=== PATIENT | male | born 1935 | race Hispanic/Latino ===

== ENCOUNTER 2019-07-19 20:25 | Observation (INO) | payer OTHER ==
[~2019-07-19] VITALS: Ht 177.8 cm; Wt 77.7 kg
[~2019-07-19 20:25] MED LIST: LISI-613 PO
[2019-07-19 20:51] LABS: BASOPHILS % (AUTO) 0.3 % (0.0-5.0); EOSINOPHILS % (AUTO) 0.3 % (0.0-8.0); HEMATOCRIT 43.2 % (42-54); LYMPHOCYTES % (AUTO) 17.9 % (21.0-51.0); MEAN CORPUSCULAR HEMOGLOBIN 30.1 pg (27.0-33.0); MEAN CORPUSCULAR VOLUME 88.7 fL (79-99); MONOCYTES % (AUTO) 5.5 % (3.0-13.0); PLATELET COUNT (AUTO) 312 K/uL (130-400); RED BLOOD CELL COUNT(AUTO) 4.87 MIL/uL (4.50-6.20); RED CELL DISTRIBUTION WIDTH 13.6 % (11.0-15.5); WHITE BLOOD COUNT (AUTO) 15.8 K/uL (4.8-10.8)
[2019-07-19 21:01] LABS: CREATININE 0.9 mg/dL (0.5-1.5); POTASSIUM 4.3 mmol/L (3.5-5.1)
[2019-07-19 21:05] LABS: ALBUMIN 3.9 g/dL (3.5-5.0); BILIRUBIN,TOTAL 0.5 mg/dL (0.2-1.0); TOTAL PROTEIN, SERUM 7.3 g/dL (6.0-8.3)
[2019-07-19] MEDS ORDERED: IOHEXOL-350 75 ML VIAL IV ONE (21:14)
[2019-07-19 22:23] LABS: APPEARANCE,URINE Clear (CLEAR); BILIRUBIN,URINE Negative (NEGATIVE); COLOR,URINE Yellow (YELLOW); GLUCOSE, URINE (UA) 500 mg/dL (NEGATIVE); KETONES,URINE Negative (NEGATIVE); LEUKOCYTE ESTERASE ,URINE Negative (NEGATIVE); NITRATE,URINE Negative (NEGATIVE); OCCULT BLOOD,URINE Negative (NEGATIVE); PH,URINE 5.5 (5.0-8.0); PROTEIN,URINE POS 1+ mg/dL (NEGATIVE); UROBILINOGEN,URINE 0.2 mg/dL (0.2-1.0)
[2019-07-19] MEDS ORDERED: MORPHINE SULFATE 4 MG/1ML SYG ONE (22:37)
[2019-07-19] MEDS ORDERED: SODIUM CHLORIDE 0.9% 1000ML 1,000 ML IV ONE (22:37)
[2019-07-19] MEDS ORDERED: ONDANSETRON HCL 4 MG/2 ML VIAL ONE (22:37)
[2019-07-19 22:48] LABS: BACTERIA,URINE Few /HPF (None Seen); MUCUS,URINE Few LPF (None Seen); RBC,URINE 0-1 /HPF (0-1)
[2019-07-19] MEDS ORDERED: MORPHINE SULFATE 2 MG/ML 1ML SYG IVP PRN (23:30)
[2019-07-19] MEDS ORDERED: ONDANSETRON HCL 4 MG/2 ML VIAL IVP PRN (23:30)
[2019-07-19] MEDS ORDERED: ZOSYN 3.375GM+NS 50ML 50 ML IV ONE (23:46)
--- NOTE | 2019-07-20 00:09 | NUR ---
ER ADMIT PATIENT RECEIVED FROM ER VIA STRETCHER ACCOMPANIED BY SPOUSE. HE IS AWAKE, ALERT AND ORIENTED X3. NO C/O PAIN AT THIS TIME. BOTH WERE ORIENTED TO ROOM AND USE OF CALL LIGHT. ALL PERSONAL BELONGINGS ARE WITHIN REACH. WILL CONTINUE TO MONITOR.
[2019-07-20 00:24] VITALS: BP 177/73
[2019-07-20] MEDS: SODIUM CHLORIDE 0.9% 1000ML 1,000 ML IV SCH ×2 (00:30→09:42)
[2019-07-20] MEDS: IPRATROPIUM/ALBUTEROL SULFATE 3 ML SOLUTION IH PRN ×3 (03:23→18:56)
[2019-07-20 04:00] VITALS: BP 155/82
[2019-07-20 08:00] VITALS: BP 160/79
[2019-07-20] MEDS ORDERED: PIPERACILLIN SODIUM/TAZOBACTAM 3.375 GM VIAL IV SCH ×2 (08:00)
[2019-07-20] MEDS: ZOSYN 3.375GM+NS 50ML 50 ML IV SCH ×3 (09:40→23:53)
[2019-07-20] MEDS ORDERED: UMEC1DIS IH (09:55)
[2019-07-20] MEDS ORDERED: SOLUMEDROL PO (09:55)
[2019-07-20] MEDS ORDERED: ALBUTEROL SULFATE IH (09:55)
[2019-07-20 11:52] VITALS: BP 135/66
[2019-07-20] MEDS ORDERED: ACETAMINOPHEN 325 MG TAB PO PRN (12:30)
[2019-07-20] MEDS ORDERED: ACETAMINOPHEN-CODEINE 300/30MG TAB PO PRN (12:30)
[2019-07-20] MEDS ORDERED: ALPRAZOLAM 0.25 MG TABLET PO PRN (13:15)
[2019-07-20] MEDS ORDERED: LACTULOSE 20 GM/30 ML UDCUP PO PRN (13:15)
[2019-07-20] MEDS ORDERED: HYDRALAZINE HCL 20 MG/ML VIAL IV PRN (13:15)
[2019-07-20] MEDS ORDERED: METOPROLOL TARTRATE 1 MG/ML 5ML VIAL IV PRN (13:15)
[2019-07-20] MEDS: LISINOPRIL 40 MG TABLET PO SCH (13:27)
--- NOTE | 2019-07-20 16:00 | NUR ---
CM NOTE PT IN OBS STATUS, NO CM TRIGGERS, WILL DEFER CM DETAILED ASSESSMENT TODAY, AND WILL FOLLOW UP IF CHANGE TO INPATIENT Addendum: 07/20/19 at 1750 by NALINI GUILLAUME RN CM Amended: Links added.
[2019-07-20 16:03] VITALS: BP 160/73
[2019-07-20] MEDS: BUDESONIDE 0.5 MG/2 ML INH IH SCH (18:57)
[2019-07-20 19:39] VITALS: BP 146/76
[2019-07-21 00:11] VITALS: BP 141/74
[2019-07-21] MEDS: SODIUM CHLORIDE 0.9% 1000ML 1,000 ML IV SCH ×2 (02:09→10:33)
[2019-07-21 04:00] VITALS: BP 139/81
[2019-07-21] MEDS: IPRATROPIUM/ALBUTEROL SULFATE 3 ML SOLUTION IH PRN (05:18)
[2019-07-21 05:24] LABS: BASOPHILS % (AUTO) 0.6 % (0.0-5.0); EOSINOPHILS % (AUTO) 2.6 % (0.0-8.0); HEMATOCRIT 42.4 % (42-54); LYMPHOCYTES % (AUTO) 19.4 % (21.0-51.0); MEAN CORPUSCULAR HEMOGLOBIN 29.9 pg (27.0-33.0); MEAN CORPUSCULAR HGB CONC 33.8 g/dL (32.0-36.0); MEAN CORPUSCULAR VOLUME 88.6 fL (79-99); MONOCYTES % (AUTO) 6.3 % (3.0-13.0); NEUTROPHILS % (AUTO) 71.1 % (40.0-77.0); PLATELET COUNT (AUTO) 284 K/uL (130-400); RED BLOOD CELL COUNT(AUTO) 4.79 MIL/uL (4.50-6.20); RED CELL DISTRIBUTION WIDTH 13.7 % (11.0-15.5); WHITE BLOOD COUNT (AUTO) 13.9 K/uL (4.8-10.8)
[2019-07-21 05:37] LABS: ALBUMIN 3.3 g/dL (3.5-5.0); BILIRUBIN,TOTAL 0.5 mg/dL (0.2-1.0); CREATININE 0.8 mg/dL (0.5-1.5); POTASSIUM 3.8 mmol/L (3.5-5.1); TOTAL PROTEIN, SERUM 6.5 g/dL (6.0-8.3)
[2019-07-21] MEDS: BUDESONIDE 0.5 MG/2 ML INH IH SCH (07:03)
[2019-07-21 07:30] VITALS: BP 134/64
[2019-07-21] MEDS ORDERED: LISINOPRIL 40 MG TABLET PO SCH (09:00)
[2019-07-21] MEDS ORDERED: PANTOPRAZOLE SODIUM 40 MG TABLET.DR PO SCH (09:00)
[2019-07-21] MEDS: LISINOPRIL 40 MG TABLET PO SCH (10:32)
[2019-07-21] MEDS: ZOSYN 3.375GM+NS 50ML 50 ML IV SCH ×2 (10:33→16:00)
[2019-07-21 11:00] VITALS: BP 157/69
== END 2019-07-21 16:50 | disposition home or self-care (01) ==
LOC: EDH 20:25 → EDHIP 22:50 → 4BH 23:18
PROVIDERS: ADMIT Internal Medicine; ATTEND Internal Medicine
DX: K40.20 Bilateral inguinal hernia, without obstruction or gangrene, not specified as recurrent (principal); D72.829 Elevated white blood cell count, unspecified; E78.5 Hyperlipidemia, unspecified; J44.9 Chronic obstructive pulmonary disease, unspecified; I10 Essential (primary) hypertension; K57.90 Diverticulosis of intestine, part unspecified, without perforation or abscess without bleeding; Z87.891 Personal history of nicotine dependence; Z79.899 Other long term (current) drug therapy
CPT/HCPCS: 36415 ×3; 74177; 80053 ×2; 81001; 83690; 85025 ×2; 87040 ×2; 94640 ×5; 94664; 96365; 96366 ×2; 96375; 99284; G0378 ×41; J2270; J2405; J2543 ×6; J7030 ×4; Q9967

== ENCOUNTER 2019-07-23 15:43 | Inpatient (IN) | payer OTHER ==
[~2019-07-23] VITALS: Ht 177.8 cm; Wt 78.5 kg
[~2019-07-23 15:43] MED LIST changes: +ALBUTEROL SULFATE IH; +SOLUMEDROL PO; +UMEC1DIS IH
[2019-07-23] MEDS ORDERED: ONDANSETRON HCL 4 MG/2 ML VIAL ONE (16:11)
[2019-07-23 16:36] LABS: APPEARANCE,URINE Cloudy (CLEAR); BILIRUBIN,URINE Small (NEGATIVE); COLOR,URINE Dark Yellow (YELLOW); GLUCOSE, URINE (UA) 500 mg/dL (NEGATIVE); KETONES,URINE Trace mg/dL (NEGATIVE); LEUKOCYTE ESTERASE ,URINE Small (NEGATIVE); NITRATE,URINE Negative (NEGATIVE); OCCULT BLOOD,URINE Negative (NEGATIVE); PROTEIN,URINE POS 1+ mg/dL (NEGATIVE)
[2019-07-23] MEDS ORDERED: BISACODYL 10 MG SUPP.RECT RC ONE (16:38)
[2019-07-23 16:55] LABS: BACTERIA,URINE Few /HPF (None Seen); MUCUS,URINE Few LPF (None Seen); RBC,URINE 0-1 /HPF (0-1); SQUAMOUS EPITHELIAL CELL,UR 0-2 /HPF (0-2)
[2019-07-23 16:56] LABS: CALCIUM OXALATE CRYSTALS,UR Few /LPF (None Seen)
[2019-07-23 16:58] LABS: BASOPHILS % (AUTO) 0.4 % (0.0-5.0); EOSINOPHILS % (AUTO) 0.6 % (0.0-8.0); MEAN CORPUSCULAR HEMOGLOBIN 29.9 pg (27.0-33.0); MEAN CORPUSCULAR HGB CONC 33.8 g/dL (32.0-36.0); MEAN CORPUSCULAR VOLUME 88.6 fL (79-99); MONOCYTES % (AUTO) 5.7 % (3.0-13.0); NEUTROPHILS % (AUTO) 85.3 % (40.0-77.0); PLATELET COUNT (AUTO) 268 K/uL (130-400); RED BLOOD CELL COUNT(AUTO) 5.19 MIL/uL (4.50-6.20); RED CELL DISTRIBUTION WIDTH 13.6 % (11.0-15.5)
[2019-07-23 17:07] LABS: CREATININE 0.8 mg/dL (0.5-1.5); POTASSIUM 4.2 mmol/L (3.5-5.1)
[2019-07-23 17:12] LABS: ALBUMIN 3.5 g/dL (3.5-5.0); BILIRUBIN,TOTAL 0.8 mg/dL (0.2-1.0); TOTAL PROTEIN, SERUM 6.9 g/dL (6.0-8.3)
[2019-07-23] MEDS ORDERED: MINERAL OIL 30 ML UDCUP PO SCH (17:15)
[2019-07-23] MEDS ORDERED: ZOSYN 3.375GM+NS 50ML 50 ML IV ONE (19:36)
[2019-07-23] MEDS ORDERED: MORPHINE SULFATE 2 MG/ML 1ML SYG IVP PRN (19:45)
[2019-07-23] MEDS ORDERED: ONDANSETRON HCL 4 MG/2 ML VIAL IVP PRN (19:45)
[2019-07-23] MEDS ORDERED: ACETAMINOPHEN 325 MG TAB PO PRN (19:45)
[2019-07-23 20:05] VITALS: BP 140/69
[2019-07-23] MEDS: LACTULOSE 20 GM/30 ML UDCUP PO SCH (20:21)
[2019-07-23] MEDS ORDERED: VANCOMYCIN PROTOCOL PER PHARMACY IV SCH (20:30)
[2019-07-23] MEDS: ZOSYN 3.375GM+NS 50ML 50 ML IV SCH (20:46)
[2019-07-23] MEDS: VANCOMYCIN 1GM+NS 250ML 250 ML IV SCH (20:49)
[2019-07-23 23:44] VITALS: BP 143/84
[2019-07-24 03:31] VITALS: BP 129/74
[2019-07-24] MEDS ORDERED: IPRATROPIUM/ALBUTEROL SULFATE 3 ML SOLUTION IH STA (04:37)
[2019-07-24] MEDS: ZOSYN 3.375GM+NS 50ML 50 ML IV SCH ×3 (04:42→20:47)
[2019-07-24] MEDS ORDERED: IPRATROPIUM/ALBUTEROL SULFATE 3 ML SOLUTION IH ONE (04:45)
[2019-07-24] MEDS: INSULIN HUMULIN R 100 UNIT/ML 3ML SQ SCH ×3 (05:20→18:42)
[2019-07-24 08:00] VITALS: BP 141/70
[2019-07-24] MEDS: VANCOMYCIN 1GM+NS 250ML 250 ML IV SCH ×2 (09:08→20:47)
[2019-07-24] MEDS: LACTULOSE 20 GM/30 ML UDCUP PO SCH ×3 (09:16→20:28)
--- NOTE | 2019-07-24 10:26 | NUR ---
Order was put Q4STAT for one time only. Spoke to Halima PAZ about ordering scheduled treatments if written/verbal order was placed. Chart orders ask to continue home medications. Patient reports taking home meds BID. Shamika PAZ will verify at later time Addendum: 07/24/19 at 1030 by ROCK MCKEON RT RT Amended: Links added.
--- NOTE | 2019-07-24 10:59 | NUR ---
Order was put Q4STAT for one time only. Spoke to Halima PAZ about ordering scheduled treatments if written/verbal order was placed by doctor. Chart orders ask to continue home medications. Patient reports taking home meds BID. Shamika PAZ will verify at later time. Addendum: 07/24/19 at 1102 by ROCK MCKEON, RT RT Amended: Links added.
[2019-07-24 12:00] VITALS: BP 135/69
--- NOTE | 2019-07-24 12:43 | NUR ---
ELZA Chris. HERE FOR . DR. COSTELLO. UPDATE OF PT. ORDERS FOR SURGEON CONSULTATION . . REVIEW . CT SCAN AND WAITING FOR OTHER DIAGNOTIC PROCEDURE. RESULTS. .
--- NOTE | 2019-07-24 13:00 | NUR ---
EXPLAIN TO PT . REGARDING . PLACEMENT OF NG TUBE ORDER. POSITION. PT HOB UP. TRY TO INSERT A NG TO HIS RT NARE AND UNABLE TO PASS THE TUBE , STOP. DUE TO PT GOT. SOME WHEEZING, CALLED RESP STAFF FOR RESP TREATMENT. ..
[2019-07-24] MEDS: ALBUTEROL SULFATE 0.083% 2.5 MG/3 ML INH IH PRN ×3 (13:24→23:27)
--- NOTE | 2019-07-24 14:50 | NUR ---
CHELSY Mesa HERE AND SPOKE WITH PT REGARDING CT SCAN RESULTS AND AGREE FOR NG TUBE PLACEMENT. AND ORDERS TO FOLLOW.
--- NOTE | 2019-07-24 15:00 | NUR ---
NG PLACEMENT . EXPLAIN TO PT/ [POSITION HOB UP. WITH HELP. DEMETRA Marcelo RN . INSERTED A 14 SYRIAN NG TO HIS RT NARE. CHECK FOR PLACEMENT AND NG TO LOW WALL INTERMMITTED SUCTION WITH A DARK GREEN COLOR GASTRIC SCREATION . NOTED . . TOLERATE WELL.
[2019-07-24 16:00] VITALS: BP 151/78
[2019-07-24] MEDS: LACTATED RINGERS 1000ML 1,000 ML IV SCH (18:41)
[2019-07-24 19:50] VITALS: BP 140/66
--- NOTE | 2019-07-24 20:45 | NUR ---
MEDS SHIFT ASSESSMENT DONE, PLEASE REFER TO CHART. INSERTED SECOND PIV G20 TO RT HAND, PT TOLERATED WELL. DUE IV ANTIBIOTICS INFUSED. KEPT NPO WITH NGT TO LIS. MAINTAINED HOB ELEVATED. KEPT COMFORTABLE. CALL LIGHT WITHIN REACH. FAMILY AT BEDSIDE. Addendum: 07/24/19 at 2352 by SUSANNA GRAVES RN RN Amended: Links added.
[2019-07-24 23:38] VITALS: BP 146/76
--- NOTE | 2019-07-25 02:00 | NUR ---
ROUNDS PT FAIRLY ASLEEP WITH RESPIRATIONS EVEN AND UNLABORED. NO NOTED DISTRESS. KEPT UNDISTURBED FOR NOW. WILL MONITOR PT. CALL LIGHT WITHIN REACH.
[2019-07-25 03:33] VITALS: BP 139/89
[2019-07-25 04:41] LABS: BASOPHILS % (AUTO) 0.7 % (0.0-5.0); EOSINOPHILS % (AUTO) 1.1 % (0.0-8.0); HEMATOCRIT 41.7 % (42-54); LYMPHOCYTES % (AUTO) 8.5 % (21.0-51.0); MEAN CORPUSCULAR HEMOGLOBIN 29.8 pg (27.0-33.0); MEAN CORPUSCULAR HGB CONC 33.7 g/dL (32.0-36.0); MEAN CORPUSCULAR VOLUME 88.5 fL (79-99); MONOCYTES % (AUTO) 6.3 % (3.0-13.0); NEUTROPHILS % (AUTO) 83.4 % (40.0-77.0); PLATELET COUNT (AUTO) 260 K/uL (130-400); RED BLOOD CELL COUNT(AUTO) 4.71 MIL/uL (4.50-6.20); RED CELL DISTRIBUTION WIDTH 13.9 % (11.0-15.5); WHITE BLOOD COUNT (AUTO) 17.3 K/uL (4.8-10.8)
[2019-07-25] MEDS: ZOSYN 3.375GM+NS 50ML 50 ML IV SCH ×3 (04:48→20:52)
--- NOTE | 2019-07-25 04:50 | NUR ---
MEDS RECRUITMENT AND OUTREACH ASSISTANT WAS IN TO DRAW BLOOD. DUE MEDS ADMINISTERED, TOLERATED WELL. PT DENIES ANY PAINS AT THIS TIME. NO DISTRESS NOTED. PROVIDED TOOTEETH TO MOISTEN MOUTH. KEPT NPO. FOR MORE CARE AND MANAGEMENT.
[2019-07-25 04:53] LABS: INR 1.08 (0.85-1.15); PARTIAL THROMBOPLASTIN TIME 26.7 SEC (26.3-35.5); PROTHROMBIN TIME 11.3 SEC (9.6-11.6)
[2019-07-25 05:15] LABS: ALBUMIN 2.8 g/dL (3.5-5.0); BILIRUBIN,TOTAL 0.6 mg/dL (0.2-1.0); CREATININE 0.8 mg/dL (0.5-1.5); POTASSIUM 3.8 mmol/L (3.5-5.1); TOTAL PROTEIN, SERUM 5.9 g/dL (6.0-8.3)
[2019-07-25] MEDS: INSULIN HUMULIN R 100 UNIT/ML 3ML SQ SCH ×5 (05:25→23:46)
[2019-07-25] MEDS: ALBUTEROL SULFATE 0.083% 2.5 MG/3 ML INH IH PRN (06:11)
[2019-07-25] MEDS: LACTATED RINGERS 1000ML 1,000 ML IV SCH ×2 (06:25→09:52)
[2019-07-25 08:00] VITALS: BP 140/75
[2019-07-25] MEDS ORDERED: COMPOUND IV REFRIGERATED 1 EACH IVSOLN MISC PRN (08:45)
[2019-07-25] MEDS ORDERED: LISINOPRIL 40 MG TABLET PO SCH (09:00)
[2019-07-25] MEDS: **HM** ANORO ELLIPTA 62.5-25MCG IH SCH (09:00)
[2019-07-25] MEDS: LACTULOSE 20 GM/30 ML UDCUP PO SCH ×2 (09:00→14:00)
[2019-07-25] MEDS: VANCOMYCIN 1.25 GM in SODIUM CHLORIDE 0.9% 250 ML IV SCH ×2 (09:45→20:52)
[2019-07-25 12:02] VITALS: BP 143/67
--- NOTE | 2019-07-25 12:50 | NUR ---
INITIAL MULTIPLE FAMILY MEMBERS IN THE ROOM- PT LIVES [address] [phone] HAS NO DME, NO HH, NO PROVIDER; INDP; [facility] WILL FOLLOW- EXPECTING TO HAVE SURGERY Addendum: 07/25/19 at 1254 by NALINI GUILLAUME RN Amended: Links added.
--- NOTE | 2019-07-25 14:07 | NUR ---
OSBALDO PA IN FACILITY TO ASSESS PT GAVE NEW ORDER TO HOLD LISINOPRIL AND LACTULOSE UNTIL NGT REMOVAL
--- NOTE | 2019-07-25 14:30 | NUR ---
DR. COSTELLO HERE ,AND ASSESS PT. SCROTAL AREA, AND ALSO SPOKE WITH PT ,AND FAMILY OF PT SURGERY FOR A BILATERAL INGULINAL HERNIA REPAIR, SPOKE WITH PT . AND FAMILY OF RISK AND OUTCOMES, QUESTION REVIEW . AND DR. SADLER TO FOLLOW
--- NOTE | 2019-07-25 14:39 | NUR ---
CALLED . CHELSY Mesa UPDATE OF DR GONZALES REQUEST IF CARDIAC CLEARANCE FOR SURGERY NEEDED . RESPOND NO CARDIAC CLEARANCE . FOR SURGERY
[2019-07-25 16:00] VITALS: BP 142/75
--- NOTE | 2019-07-25 16:30 | NUR ---
ELZA Mesa HERE AND SPOKE WITH FAMILY AND PT. REGARDING SURGERY. PT STATED THAT THEY WISH FOR ANOTHER SURGEON . . FOR SURGERY CARE. WITH FOLLOWUP.
--- NOTE | 2019-07-25 16:50 | NUR ---
ELZA Mesa AT THE NURSE'S STATIONS WITH FOLLOWUP .STATUS. SPOKE WITH DR. COSTELLO THEIR SERVICE IS SIGNING OFF THE CASE . PER FAMILY REQUEST.
--- NOTE | 2019-07-25 17:00 | NUR ---
CHELSY Mesa WAS CALLED AND UPDATE OF PT . REQUEST OF ANOTHER SURGEON . WITH NURSING COMMNICATIN TO REFER CASE FOLLOW AIRPLANE PILOT HELPER PROTOCOL . FOR SURGERY CARE .
--- NOTE | 2019-07-25 17:05 | NUR ---
FAMILY. DAUGHTER . GAVE ME DR. GUZMAN . NAME AND STATED THAT THEY WANTED HIM TO DO THE SURGERY.
--- NOTE | 2019-07-25 17:44 | NUR ---
DOMITILA HANLEY DENTAL INSURANCE BILLER FOR BENCHMARK AND UPDATE OF PT . . DECLINING SERVICES FROM DR. COSTELLO . AND WANTING ANOTHER SURGEON.. WILL BE HERE TOMMORROW TO SEE PT. AND ALSO TO SPEAK WITH FAMILY MEMBERS OF CARE . Addendum: 07/25/19 at 195 by CARMELITA GRESHAM RN RN CHARLEEN Jones
--- NOTE | 2019-07-25 18:30 | NUR ---
DR. WALSH WAS CALLED AND SPOKE WITH HIM REGARDING PT . FAMILY REQUEST OF HIS SERVICES . . DR. 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 REGARDING . STATUS. PROTOCOL
--- NOTE | 2019-07-25 18:31 | NUR ---
COURTESY , VISIT FROM DR. WALSH PER FAMILY REQUEST } OUT COME : FOLLOW WITH [facility] PROTOCOL . .
--- NOTE | 2019-07-25 18:50 | NUR ---
SPOKE WITH FAMILY OF CUSTOMER SERVICE REP PROTOCOL , AND DR. GUZMAN INFORMATION REGARDING HIS POSITION THAT HE WAS NOT CUSTOMER SERVICE REP AND NEEDED TO FOLLOW THE CUSTOMER SERVICE REP PROTOCOL . FAMILY . UPDATE WILL LET PRIMARY KNOW OF OUTCOME.
[2019-07-25 20:17] VITALS: BP 143/72
--- NOTE | 2019-07-25 20:55 | NUR ---
MEDS SHIFT ASSESSMENT DONE, PLEASE REFER TO CHART. DUE MEDS ADMINISTERED, TOLERATED WELL. KEPT NPO. NGT TUBE MAINTAINED TO INTERMITTENT LIS. KEPT COMFORTABLE WITH HOB ELEVATED. WILL MONITOR PT. FAMILY AT BEDSIDE. CALL LIGHT WITHIN REACH. Addendum: 07/25/19 at 2238 by SUSANNA GRAVES RN RN Amended: Links added.
[2019-07-25 23:47] VITALS: BP 148/70
--- NOTE | 2019-07-26 02:00 | NUR ---
ROUNDS PT FAIRLY ASLEEP WITH RESPIRATIONS EVEN AND UNLABORED. NO NOTED DISTRESS. KEPT UNDISTURBED FOR NOW. CALL LIGHT WITHIN REACH. WILL MEDICATE PT.
[2019-07-26] MEDS: LACTATED RINGERS 1000ML 1,000 ML IV SCH ×3 (03:58→23:20)
[2019-07-26] MEDS: ZOSYN 3.375GM+NS 50ML 50 ML IV SCH ×3 (03:58→21:30)
[2019-07-26 04:06] VITALS: BP 135/69
[2019-07-26 05:24] LABS: BASOPHILS % (AUTO) 0.5 % (0.0-5.0); EOSINOPHILS % (AUTO) 3.5 % (0.0-8.0); HEMATOCRIT 39.7 % (42-54); LYMPHOCYTES % (AUTO) 8.5 % (21.0-51.0); MEAN CORPUSCULAR HGB CONC 33.4 g/dL (32.0-36.0); MEAN CORPUSCULAR VOLUME 89.8 fL (79-99); MONOCYTES % (AUTO) 6.1 % (3.0-13.0); NEUTROPHILS % (AUTO) 81.4 % (40.0-77.0); PLATELET COUNT (AUTO) 224 K/uL (130-400); RED BLOOD CELL COUNT(AUTO) 4.42 MIL/uL (4.50-6.20); RED CELL DISTRIBUTION WIDTH 13.6 % (11.0-15.5); WHITE BLOOD COUNT (AUTO) 15.8 K/uL (4.8-10.8)
[2019-07-26 05:27] LABS: CREATININE 0.8 mg/dL (0.5-1.5); MAGNESIUM 2.1 mg/dL (1.80-2.40)
[2019-07-26] MEDS: INSULIN HUMULIN R 100 UNIT/ML 3ML SQ SCH ×4 (05:43→23:47)
--- NOTE | 2019-07-26 06:20 | NUR ---
ROUNDS PT RESTING WELL. NO CONCERNS VERBALIZED. NO DISTRESS NOTED. KEPT RESTED. FOR MORE CARE.
[2019-07-26] MEDS: ALBUTEROL SULFATE 0.083% 2.5 MG/3 ML INH IH PRN ×2 (07:09→19:36)
[2019-07-26 07:30] VITALS: BP 131/57
[2019-07-26] MEDS: **HM** ANORO ELLIPTA 62.5-25MCG IH SCH (08:33)
[2019-07-26] MEDS: VANCOMYCIN 1.25 GM in SODIUM CHLORIDE 0.9% 250 ML IV SCH ×2 (10:58→21:30)
[2019-07-26 11:00] VITALS: BP 136/63
--- NOTE | 2019-07-26 12:10 | NUR ---
DR. GAYE NG . BENCHMARK GROUP ROUNDING . AND KD CHAVEZ TEST AND BALANCE ENGINEER . AT THE BEDSIDE, ASSESSMENT DONE TO HIS INGUINAL HERNIAS . QUESTIONS DIRECTED TO PT.AND FAMILY REGARDING PT . HISTORY AND HOSPITAL CARE ALSO LET FAMILY MEMBERS KNOW THAT AUTOMOTIVE SERVICE DIRECTOR SURGEON IS DR. REECE ,SURGEON , AND ALSO SOMETIME DR. COSTELLO COVERS FOR HER . AND WILL LET HER KNOW REGARDING THE CASE IF IT WAS OKAY WITH PT . AND FAMILY.. AND DR. Albert NG WILL CALL DR. REECE ..IF SHE WOULD TAKE THE CASE OTHER OPTIONS DISCUSS .IF THEY DECIDE OTHER BECERRA.
--- NOTE | 2019-07-26 12:35 | NUR ---
DR. Albert RAMSEY SPOKE WITH DR. REECE REG MONICA ALDRIDGE, AND AGREE TO SEE PT. DR. NG LET FAMILY AND PT KNOW THAT DR. REECE WILL COME IN TO SEE HIM, AGREEABLE RESPOND .
[2019-07-26 16:00] VITALS: BP 144/69
--- NOTE | 2019-07-26 21:30 | NUR ---
MEDS DUE MEDS ADMINISTERED, TOLERATED WELL. NO CONCERNS VERBALIZED AT THIS TIME. INFORMED THAT SURGEON WILL SEE HIM IN AM PER REPORT FROM AM NURSE. VERBALIZES UNDERSTANDING.
[2019-07-26 21:49] VITALS: BP 162/77
[2019-07-26 23:46] VITALS: BP 139/68
--- NOTE | 2019-07-27 02:00 | NUR ---
ROUNDS PT RESTING WELL, FAIRLY ASLEEP WITH RESPIRATIONS EVEN AND UNLABORED. NO NOTED DISTRESS. KEPT NPO. MAINTAINED ON NGT TO LIS. WILL MONITOR PT.
[2019-07-27 03:53] VITALS: BP 149/70
[2019-07-27] MEDS: ALBUTEROL SULFATE 0.083% 2.5 MG/3 ML INH IH PRN ×2 (05:01→18:09)
[2019-07-27] MEDS: ZOSYN 3.375GM+NS 50ML 50 ML IV SCH ×3 (05:03→21:54)
[2019-07-27] MEDS: INSULIN HUMULIN R 100 UNIT/ML 3ML SQ SCH ×3 (05:15→17:34)
[2019-07-27 06:08] LABS: HEMATOCRIT 39.3 % (42-54); MEAN CORPUSCULAR HGB CONC 33.6 g/dL (32.0-36.0); MEAN CORPUSCULAR VOLUME 89.4 fL (79-99); PLATELET COUNT (AUTO) 227 K/uL (130-400); RED BLOOD CELL COUNT(AUTO) 4.39 MIL/uL (4.50-6.20); RED CELL DISTRIBUTION WIDTH 13.4 % (11.0-15.5); WHITE BLOOD COUNT (AUTO) 11.5 K/uL (4.8-10.8)
[2019-07-27 06:15] LABS: CREATININE 0.7 mg/dL (0.5-1.5); POTASSIUM 3.9 mmol/L (3.5-5.1)
--- NOTE | 2019-07-27 06:20 | NUR ---
OR OR CALLED AND INFORMS DIRECTOR OF QUANTITATIVE RESEARCH THAT PT IS ON THE OR SCHEDULE FOR TODAY AT 7AM. INFORMED OR STAFF THAT NO ORDER WAS MADE ON PT. RESOURCE NURSE MADE AWARE.
--- NOTE | 2019-07-27 07:15 | NUR ---
NOTE AAOX3. DENIES PAIN OR DISCOMFORT AT THIS TIME. BBS CLEAR NO COUGH OR PHLEGM. NO N/V NGT IN PLACE CHECKED WITH AUSCULTATION. BOWEL SOUNDS HYPOACTIVE. WEARS BRIEFS FOR INCONTINENCE EPISODES. SCROTUM LARGE AND RED TO SOME AREAS BUT BLENCHING NOTED. NO SKIN BREAKDOWN OR RASH REPORTED OR NOTED. AT HIS SIDE. THERE WAS A MISCOMMUNICATION AND SURGERY CAME UP TO FINGER GRIP MACHINE OPERATOR PATIENT BUT THERE IS NO ORDER TO OPERATE ON HIM AND WE ARE STILL WAITING FOR DR REECE TO COME SEE THE PATIENT.
--- NOTE | 2019-07-27 07:48 | NUR ---
DR SHANELL REECE MADE ROUNDS AT THIS TIME AND SPOKE TO PATIENT AND DAUGHTER OVER TELEPHONE AND EXPLAINED THE PLAN. FOR NOW TO WAIT FOR HIS WBC TO GO DOWN TO NORMAL AND START SUPPLEMENTAL NUTRITION WHILE WE WAIT. NGT STILL TO LIWS. EXPLAINED THE RISKS INVOLVED WITH SURGERY, INFECTION, LOSS OF TESTICLE OR TESTICLES AND USING MESH FOR REPAIR OB BILATERAL INGUINAL HERNIAS THAT HAVE INVADED THE SCROTUM.
[2019-07-27 08:07] VITALS: BP 136/66
[2019-07-27] MEDS: **HM** ANORO ELLIPTA 62.5-25MCG IH SCH (09:00)
--- NOTE | 2019-07-27 09:06 | NUR ---
f/u visit Sw met with family who states surgery is Thursday. Family very pleased with Dr Méndez and her explanation of procedure and risks. Sw to follow and assist as needed
[2019-07-27] MEDS: VANCOMYCIN 1.25 GM in SODIUM CHLORIDE 0.9% 250 ML IV SCH ×2 (10:14→21:55)
[2019-07-27 11:39] VITALS: BP 152/70
[2019-07-27] MEDS: LACTATED RINGERS 1000ML 1,000 ML IV SCH (12:40)
[2019-07-27 16:56] VITALS: BP 147/71
[2019-07-27] MEDS: HEPARIN SODIUM 5000UNIT/ML 1ML VIAL SQ SCH (18:23)
[2019-07-27 20:00] VITALS: BP 129/72
[2019-07-28] VITALS: BP 136/67
[2019-07-28] MEDS: LACTATED RINGERS 1000ML 1,000 ML IV SCH ×2 (02:00→18:15)
[2019-07-28 04:00] VITALS: BP 137/58
[2019-07-28] MEDS: HEPARIN SODIUM 5000UNIT/ML 1ML VIAL SQ SCH ×2 (05:43→18:16)
[2019-07-28] MEDS: INSULIN HUMULIN R 100 UNIT/ML 3ML SQ SCH ×4 (05:50→17:10)
[2019-07-28] MEDS: ZOSYN 3.375GM+NS 50ML 50 ML IV SCH ×3 (05:50→20:34)
[2019-07-28] MEDS: ALBUTEROL SULFATE 0.083% 2.5 MG/3 ML INH IH PRN ×2 (06:05→18:36)
[2019-07-28 06:15] LABS: HEMATOCRIT 37.1 % (42-54); MEAN CORPUSCULAR HEMOGLOBIN 30.2 pg (27.0-33.0); MEAN CORPUSCULAR HGB CONC 33.9 g/dL (32.0-36.0); MEAN CORPUSCULAR VOLUME 88.9 fL (79-99); PLATELET COUNT (AUTO) 219 K/uL (130-400); RED BLOOD CELL COUNT(AUTO) 4.17 MIL/uL (4.50-6.20); RED CELL DISTRIBUTION WIDTH 13.4 % (11.0-15.5); WHITE BLOOD COUNT (AUTO) 11.1 K/uL (4.8-10.8)
[2019-07-28 06:19] LABS: CREATININE 0.7 mg/dL (0.5-1.5); MAGNESIUM 1.7 mg/dL (1.80-2.40); POTASSIUM 3.5 mmol/L (3.5-5.1)
[2019-07-28 08:07] VITALS: BP 146/74
[2019-07-28] MEDS: **HM** ANORO ELLIPTA 62.5-25MCG IH SCH (09:00)
[2019-07-28] MEDS ORDERED: LIDOCAINE HCL-MPF 1% 2ML VIAL IV PRN (11:15)
[2019-07-28] MEDS ORDERED: MAGNESIUM 2GM PREMIX 50ML 50 ML IV PRN (11:15)
[2019-07-28] MEDS ORDERED: POTASSIUM CHLORIDE 20 MEQ ERTAB PO PRN (11:15)
[2019-07-28] MEDS ORDERED: POTASSIUM CHLORIDE 20MEQ/100ML 100 ML IV PRN (11:15)
[2019-07-28] MEDS: VANCOMYCIN 1.25 GM in SODIUM CHLORIDE 0.9% 250 ML IV SCH ×2 (11:54→20:34)
[2019-07-28 12:02] VITALS: BP 152/82
[2019-07-28 17:14] VITALS: BP 145/84
[2019-07-28 20:00] VITALS: BP 142/68
[2019-07-29] VITALS (28 sets, daily range): BP systolic 122–176; BP diastolic 62–85
[2019-07-29] MEDS: HEPARIN SODIUM 5000UNIT/ML 1ML VIAL SQ SCH ×2 (03:09→16:30)
[2019-07-29] MEDS: LACTATED RINGERS 1000ML 1,000 ML IV SCH ×2 (04:40→18:33)
[2019-07-29 04:42] LABS: HEMATOCRIT 37.7 % (42-54); MEAN CORPUSCULAR HEMOGLOBIN 30.3 pg (27.0-33.0); MEAN CORPUSCULAR HGB CONC 34.3 g/dL (32.0-36.0); MEAN CORPUSCULAR VOLUME 88.2 fL (79-99); PLATELET COUNT (AUTO) 213 K/uL (130-400); RED BLOOD CELL COUNT(AUTO) 4.27 MIL/uL (4.50-6.20); RED CELL DISTRIBUTION WIDTH 13.1 % (11.0-15.5); WHITE BLOOD COUNT (AUTO) 10.3 K/uL (4.8-10.8)
[2019-07-29 05:02] LABS: CREATININE 0.7 mg/dL (0.5-1.5); POTASSIUM 3.4 mmol/L (3.5-5.1)
[2019-07-29] MEDS: ZOSYN 3.375GM+NS 50ML 50 ML IV SCH ×3 (05:04→21:34)
[2019-07-29] MEDS: INSULIN HUMULIN R 100 UNIT/ML 3ML SQ SCH ×5 (05:56→21:52)
[2019-07-29] MEDS: ALBUTEROL SULFATE 0.083% 2.5 MG/3 ML INH IH PRN ×2 (06:43→18:31)
[2019-07-29] MEDS: **HM** ANORO ELLIPTA 62.5-25MCG IH SCH (09:00)
[2019-07-29] MEDS: VANCOMYCIN 1.25 GM in SODIUM CHLORIDE 0.9% 250 ML IV SCH ×3 (10:01→21:32)
--- NOTE | 2019-07-29 10:03 | NUR ---
NPO, TRANSFERRED TO OR NO DISTRESS, AAOX3. LUNGS CLEAR. IV INTACT.
[2019-07-29] MEDS ORDERED: SODIUM CHLORIDE 0.9% 1000ML 1,000 ML IV ONE (10:17)
[2019-07-29] MEDS ORDERED: ROPIVACAINE 0.5% 5MG/ML 30ML IJ ONE (10:34)
[2019-07-29] MEDS ORDERED: PROPOFOL 10 MG/ML 20ML VIAL IV ONE (10:45)
[2019-07-29] MEDS ORDERED: MIDAZOLAM HCL 1 MG/ML 2ML VIAL ONE (10:45)
[2019-07-29] MEDS ORDERED: FENTANYL CITRATE PF 50 MCG/1 ML 5ML AMP IV ONE (10:46)
[2019-07-29] MEDS ORDERED: LIDOCAINE HCL MPF 1% 5ML VIAL ONE ×2 (10:46→13:51)
[2019-07-29] MEDS ORDERED: ROCURONIUM 10MG/1ML SYR 10 MG/ML ML ONE ×2 (10:49→11:30)
[2019-07-29] MEDS ORDERED: ONDANSETRON HCL 4 MG/2 ML VIAL ONE (10:50)
[2019-07-29] MEDS ORDERED: DEXAMETHASONE SOD PHOSPHATE 10MG/ML 1ML VIAL ONE (10:50)
[2019-07-29] MEDS ORDERED: EPHEDRINE SULFATE 50 MG/ML AMPULE ONE (11:06)
[2019-07-29] MEDS ORDERED: KETOROLAC TROMETHAMINE 30MG/ML ONE (13:22)
[2019-07-29] MEDS ORDERED: FENTANYL CITRATE PF 50 MCG/1 ML 2ML VIAL ONE (13:41)
[2019-07-29] MEDS ORDERED: GLYCOPYRROLATE 1 MG/5 ML SYRINGE ONE (13:44)
[2019-07-29] MEDS ORDERED: NEOSTIGMINE 5MG/5ML SYR IV ONE (13:44)
[2019-07-29] MEDS ORDERED: ACETAMINOPHEN-CODEINE 300/30MG TAB PO PRN (14:45)
[2019-07-29] MEDS ORDERED: MORPHINE SULFATE 4 MG/1ML SYG IV PRN (14:45)
[2019-07-29] MEDS ORDERED: HYDRALAZINE HCL 20 MG/ML VIAL ONE (15:02)
--- NOTE | 2019-07-29 15:30 | NUR ---
PT BACK FROM SURGERY, S/P RAMON INGUIN. HERNIA REP. RAMON. SKYE DRAIN, WITH SANGUINEOUS DRAINAGE. NO BLEEDING FROM SURGICAL SITE, AAOX3, DENIES ANY PAIN AT THIS TIME. IV INTACT.
[2019-07-30 00:59] VITALS: BP 126/75
[2019-07-30 04:40] VITALS: BP 133/72
[2019-07-30] MEDS: HEPARIN SODIUM 5000UNIT/ML 1ML VIAL SQ SCH ×3 (05:09→17:17)
[2019-07-30] MEDS: ZOSYN 3.375GM+NS 50ML 50 ML IV SCH ×3 (05:09→21:14)
[2019-07-30 07:07] LABS: BASOPHILS % (AUTO) 0.1 % (0.0-5.0); HEMATOCRIT 39.3 % (42-54); LYMPHOCYTES % (AUTO) 6.1 % (21.0-51.0); MEAN CORPUSCULAR HEMOGLOBIN 29.9 pg (27.0-33.0); MEAN CORPUSCULAR HGB CONC 33.5 g/dL (32.0-36.0); MEAN CORPUSCULAR VOLUME 89.4 fL (79-99); MONOCYTES % (AUTO) 8.1 % (3.0-13.0); NEUTROPHILS % (AUTO) 85.7 % (40.0-77.0); PLATELET COUNT (AUTO) 207 K/uL (130-400); RED BLOOD CELL COUNT(AUTO) 4.39 MIL/uL (4.50-6.20); RED CELL DISTRIBUTION WIDTH 13.5 % (11.0-15.5); WHITE BLOOD COUNT (AUTO) 19.3 K/uL (4.8-10.8)
[2019-07-30] MEDS: LACTATED RINGERS 1000ML 1,000 ML IV SCH ×2 (07:20→20:40)
[2019-07-30 07:25] LABS: CREATININE 1.5 mg/dL (0.5-1.5); POTASSIUM 3.6 mmol/L (3.5-5.1)
[2019-07-30] MEDS: INSULIN HUMULIN R 100 UNIT/ML 3ML SQ SCH ×3 (07:30→17:52)
[2019-07-30 08:00] VITALS: BP 141/69
[2019-07-30] MEDS: ALBUTEROL SULFATE 0.083% 2.5 MG/3 ML INH IH PRN (08:50)
[2019-07-30] MEDS: **HM** ANORO ELLIPTA 62.5-25MCG IH SCH (09:00)
[2019-07-30] MEDS: VANCOMYCIN 1.25 GM in SODIUM CHLORIDE 0.9% 250 ML IV SCH (09:00)
--- NOTE | 2019-07-30 09:50 | NUR ---
SURGICAL ROUNDS DR REECE ROUNDED ON PATIENT RECEIVED THE FOLLOWING ORDERS 1. PER SURGURY PATIENT MAY BE DISCARGED WITH DRAINS IN PLACE 2. FOLLOW-UP IN OFFICE IN 7 DAYS CALL FO APPOINTMENT 3. CONTINUE TAKING ENSURE 3 TIMES A DAY WITH MEALS FOR 2 WEEKS 4. TEACH PATIENT HOW TO MILK AND EMPTY SKYE DRAINS 5. MAY REMOVE DRESSING TOMMOROW AND SHOWER PAT AREA DRY AND THEN RE- DRESS IMPORTANT TO KEEP ARE DRY . 6 MAY APPLIED ICE TO SITE ( NOT DIRECTLY ON SKIN) IF NEEDED FOR PAIN.
[2019-07-30] MEDS: ONDANSETRON HCL 4 MG/2 ML VIAL IVP PRN (10:43)
[2019-07-30 11:55] VITALS: BP 101/58
[2019-07-30 16:00] VITALS: BP 109/60
[2019-07-30 19:20] VITALS: BP 122/69
[2019-07-31 00:11] VITALS: BP 143/76
[2019-07-31 04:18] VITALS: BP 156/81
[2019-07-31] MEDS: HEPARIN SODIUM 5000UNIT/ML 1ML VIAL SQ SCH ×2 (05:02→16:48)
[2019-07-31] MEDS: ZOSYN 3.375GM+NS 50ML 50 ML IV SCH ×2 (05:03→13:34)
[2019-07-31] MEDS: INSULIN HUMULIN R 100 UNIT/ML 3ML SQ SCH ×6 (05:15→21:59)
[2019-07-31 06:13] LABS: BASOPHILS % (AUTO) 0.3 % (0.0-5.0); EOSINOPHILS % (AUTO) 0.4 % (0.0-8.0); HEMATOCRIT 37.1 % (42-54); LYMPHOCYTES % (AUTO) 7.3 % (21.0-51.0); MEAN CORPUSCULAR HEMOGLOBIN 30.3 pg (27.0-33.0); MEAN CORPUSCULAR VOLUME 89.2 fL (79-99); MONOCYTES % (AUTO) 8.2 % (3.0-13.0); NEUTROPHILS % (AUTO) 83.8 % (40.0-77.0); PLATELET COUNT (AUTO) 210 K/uL (130-400); RED BLOOD CELL COUNT(AUTO) 4.16 MIL/uL (4.50-6.20); WHITE BLOOD COUNT (AUTO) 15.9 K/uL (4.8-10.8)
[2019-07-31 06:22] LABS: CREATININE 2.3 mg/dL (0.5-1.5); POTASSIUM 3.4 mmol/L (3.5-5.1)
[2019-07-31 07:30] VITALS: BP 148/67
[2019-07-31] MEDS: **HM** ANORO ELLIPTA 62.5-25MCG IH SCH (09:00)
--- NOTE | 2019-07-31 09:00 | NUR ---
DRESSING CHANGED DRESSING TO LOWER ABDOMEN CHANGED PER DR REECE'S ORDERS. PATIENT HAS MADI TO LOWER ABDOMEN AND [address] CLEANSED AREA WITH NS AND COVERED WITH 4X4'S AND MEDIPORE. THE INCISION LOOKS CLEAN DRY AND INTACT SKIN LOOKS PINK, PATIENT DENIES HAVING PAIN TO SITE. EDUCATED PATIENT AND HIS ON THE IMPORTANCE OF KEEPING DRESSING CLEAN AND DRY AT ALL TIMES AND HOW TO CHANGE THE DRESSING AND CARE FOR THE SKYE DRAINS. PROCEDURE TOLERATED WELL.
[2019-07-31] MEDS ORDERED: METHYLPREDNISOLONE SOD SUCC 125MG/2ML VIAL IVP SCH (09:30)
[2019-07-31] MEDS: POTASSIUM CHLORIDE 10% ELIXIR 20 MEQ/15 ML UDCUP PO PRN ×2 (10:31→10:33)
[2019-07-31] MEDS: LACTATED RINGERS 1000ML 1,000 ML IV SCH ×4 (10:39→20:52)
[2019-07-31 11:00] VITALS: BP 145/75
[2019-07-31 16:00] VITALS: BP 152/82
[2019-07-31] MEDS: CEFEPIME HCL 2 GM VIAL IVP SCH (16:44)
[2019-07-31] MEDS: DOXYCYCLINE 100MG+NS 250ML 250 ML IV SCH (16:45)
[2019-07-31 17:37] LABS: CREATININE 2.3 mg/dL (0.5-1.5); POTASSIUM 3.9 mmol/L (3.5-5.1)
[2019-07-31] MEDS: ALBUTEROL SULFATE 0.083% 2.5 MG/3 ML INH IH PRN (18:33)
[2019-07-31] MEDS ORDERED: ZOSYN 3.375GM+NS 50ML 50 ML IV SCH (21:00)
[2019-07-31 21:33] VITALS: BP 151/77
[2019-08-01] VITALS (7 sets, daily range): BP systolic 129–153; BP diastolic 63–83
[2019-08-01] MEDS: ONDANSETRON HCL 4 MG/2 ML VIAL IVP PRN ×2 (02:58→15:46)
[2019-08-01] MEDS: DOXYCYCLINE 100MG+NS 250ML 250 ML IV SCH ×2 (02:58→15:47)
--- NOTE | 2019-08-01 02:58 | NUR ---
NAUSEA Pt c/o feeling nauseated.Unable to sleep well.Medicated with Zofran iv.Pt.s been voiding clear yellow urine via urinal.
[2019-08-01] MEDS: LACTATED RINGERS 1000ML 1,000 ML IV SCH ×3 (03:04→21:20)
[2019-08-01] MEDS: CEFEPIME HCL 2 GM VIAL IVP SCH ×2 (03:04→15:47)
[2019-08-01] MEDS: HEPARIN SODIUM 5000UNIT/ML 1ML VIAL SQ SCH ×2 (04:38→15:48)
[2019-08-01] MEDS: INSULIN HUMULIN R 100 UNIT/ML 3ML SQ SCH ×4 (05:42→21:24)
[2019-08-01 06:26] LABS: BASOPHILS % (AUTO) 0.4 % (0.0-5.0); EOSINOPHILS % (AUTO) 0.9 % (0.0-8.0); HEMATOCRIT 35.8 % (42-54); LYMPHOCYTES % (AUTO) 6.8 % (21.0-51.0); MEAN CORPUSCULAR HGB CONC 33.5 g/dL (32.0-36.0); MEAN CORPUSCULAR VOLUME 89.7 fL (79-99); MONOCYTES % (AUTO) 7.6 % (3.0-13.0); NEUTROPHILS % (AUTO) 84.3 % (40.0-77.0); PLATELET COUNT (AUTO) 200 K/uL (130-400); RED BLOOD CELL COUNT(AUTO) 3.99 MIL/uL (4.50-6.20)
[2019-08-01 06:54] LABS: CREATININE 2.3 mg/dL (0.5-1.5); POTASSIUM 3.6 mmol/L (3.5-5.1)
[2019-08-01] MEDS: **HM** ANORO ELLIPTA 62.5-25MCG IH SCH (09:00)
[2019-08-01] MEDS: DOCUSATE SODIUM 100 MG CAP PO SCH ×3 (10:24→21:20)
--- NOTE | 2019-08-01 12:56 | NUR ---
Nutrition Intervention: Nutrition screen based on LOS x 9 days. Pt. S/P Leonardo. Open Inguinal hernia repair(07/29/19). Pt. on 75gm CCD GI Soft [place] diet with 50% p.o. intake, as per pt./family. Spoke with pt. / family regarding changing nutritional supplementation from Ensure to Glucerna due to elevated BS levels and pt. / family agreed. Labs reviewed(Alb 2.8, BG 147, BUN 23, Creat 2.3, GFR 29). LBM: 07/30/19. SR-10, abd. SKYE drain. BMI: 24.8, normal for age. Recommendations: 1) Continue current diet. 2) Rec. Chilled [place] Glucerna TID with meals in place of Ensure due to elevated BS levels. 3) Continue to monitor pt's nutritional status. 4) Consult RD as nutrition concerns arise. Addendum: 08/01/19 at [address] Amended: Links added.
[2019-08-01 18:38] LABS: APPEARANCE,URINE Clear (CLEAR); BILIRUBIN,URINE Negative (NEGATIVE); COLOR,URINE Yellow (YELLOW); GLUCOSE, URINE (UA) Negative (NEGATIVE); KETONES,URINE Negative (NEGATIVE); LEUKOCYTE ESTERASE ,URINE Small (NEGATIVE); NITRATE,URINE Negative (NEGATIVE); OCCULT BLOOD,URINE Negative (NEGATIVE); PROTEIN,URINE Negative (NEGATIVE); UROBILINOGEN,URINE 0.2 mg/dL (0.2-1.0)
[2019-08-01 18:47] LABS: BACTERIA,URINE Few /HPF (None Seen); RBC,URINE 0-1 /HPF (0-1); SQUAMOUS EPITHELIAL CELL,UR Few /HPF (0-2)
[2019-08-01] MEDS: TAMSULOSIN HCL 0.4 MG CAP.ER.24H PO SCH (21:20)
[2019-08-01] MEDS: LORAZEPAM 1 MG TABLET PO PRN (21:20)
[2019-08-02] MEDS: DOXYCYCLINE 100MG+NS 250ML 250 ML IV SCH ×2 (03:07→15:02)
[2019-08-02 03:53] VITALS: BP 147/72
[2019-08-02] MEDS: LACTATED RINGERS 1000ML 1,000 ML IV SCH ×3 (04:15→20:11)
[2019-08-02 04:51] LABS: HEMATOCRIT 33.7 % (42-54); MEAN CORPUSCULAR HEMOGLOBIN 30.2 pg (27.0-33.0); MEAN CORPUSCULAR HGB CONC 34.3 g/dL (32.0-36.0); MEAN CORPUSCULAR VOLUME 88.1 fL (79-99); PLATELET COUNT (AUTO) 204 K/uL (130-400); RED BLOOD CELL COUNT(AUTO) 3.82 MIL/uL (4.50-6.20); RED CELL DISTRIBUTION WIDTH 13.7 % (11.0-15.5); WHITE BLOOD COUNT (AUTO) 11.9 K/uL (4.8-10.8)
[2019-08-02] MEDS: CEFEPIME HCL 2 GM VIAL IVP SCH ×2 (04:56→15:02)
[2019-08-02] MEDS: HEPARIN SODIUM 5000UNIT/ML 1ML VIAL SQ SCH ×2 (04:57→17:20)
[2019-08-02 05:01] LABS: CREATININE 2.2 mg/dL (0.5-1.5); POTASSIUM 3.8 mmol/L (3.5-5.1)
[2019-08-02] MEDS: INSULIN HUMULIN R 100 UNIT/ML 3ML SQ SCH ×4 (05:51→20:50)
[2019-08-02] MEDS: ALBUTEROL SULFATE 0.083% 2.5 MG/3 ML INH IH PRN ×2 (06:25→18:11)
[2019-08-02 08:00] VITALS: BP 147/74
[2019-08-02] MEDS: **HM** ANORO ELLIPTA 62.5-25MCG IH SCH (09:00)
[2019-08-02] MEDS: DOCUSATE SODIUM 100 MG CAP PO SCH ×3 (09:19→20:10)
[2019-08-02 11:00] VITALS: BP 148/58
[2019-08-02 16:00] VITALS: BP 147/78
[2019-08-02 19:34] VITALS: BP 154/76
[2019-08-02] MEDS: LORAZEPAM 1 MG TABLET PO PRN (20:10)
[2019-08-02] MEDS: TAMSULOSIN HCL 0.4 MG CAP.ER.24H PO SCH (20:10)
[2019-08-02 23:29] VITALS: BP 153/79
[2019-08-03] MEDS: DOXYCYCLINE 100MG+NS 250ML 250 ML IV SCH (03:13)
[2019-08-03] MEDS: LACTATED RINGERS 1000ML 1,000 ML IV SCH ×2 (03:13→12:15)
[2019-08-03 03:54] VITALS: BP 147/78
[2019-08-03 05:16] LABS: BASOPHILS % (AUTO) 0.5 % (0.0-5.0); EOSINOPHILS % (AUTO) 3.8 % (0.0-8.0); HEMATOCRIT 32.4 % (42-54); LYMPHOCYTES % (AUTO) 9.3 % (21.0-51.0); MEAN CORPUSCULAR HEMOGLOBIN 30.7 pg (27.0-33.0); MEAN CORPUSCULAR HGB CONC 34.2 g/dL (32.0-36.0); MEAN CORPUSCULAR VOLUME 89.8 fL (79-99); MONOCYTES % (AUTO) 9.8 % (3.0-13.0); NEUTROPHILS % (AUTO) 76.6 % (40.0-77.0); PLATELET COUNT (AUTO) 203 K/uL (130-400); RED BLOOD CELL COUNT(AUTO) 3.61 MIL/uL (4.50-6.20); RED CELL DISTRIBUTION WIDTH 13.8 % (11.0-15.5); WHITE BLOOD COUNT (AUTO) 11.7 K/uL (4.8-10.8)
[2019-08-03] MEDS: CEFEPIME HCL 2 GM VIAL IVP SCH (05:26)
[2019-08-03] MEDS: HEPARIN SODIUM 5000UNIT/ML 1ML VIAL SQ SCH (05:26)
[2019-08-03 05:31] LABS: CREATININE 2.2 mg/dL (0.5-1.5); POTASSIUM 3.8 mmol/L (3.5-5.1)
[2019-08-03] MEDS: ALBUTEROL SULFATE 0.083% 2.5 MG/3 ML INH IH PRN (05:39)
[2019-08-03] MEDS: INSULIN HUMULIN R 100 UNIT/ML 3ML SQ SCH ×2 (06:10→11:30)
[2019-08-03 07:30] VITALS: BP 138/70
[2019-08-03] MEDS: **HM** ANORO ELLIPTA 62.5-25MCG IH SCH (09:00)
[2019-08-03] MEDS: DOCUSATE SODIUM 100 MG CAP PO SCH ×2 (09:31→14:00)
[2019-08-03 13:00] VITALS: BP 184/96
[2019-08-03 16:00] VITALS: BP 154/86
--- NOTE | 2019-08-03 16:45 | NUR ---
LEFT SKYE DRAIN OUTPUT FOR 24 HR WAS 12ML. SKYE DRAIN WAS REMOVED AT THIS TIME AND GAUZE DRESSING WAS PLACED OVER THE AREA AND SECURED WITH TAPE. TOLERATED PROCEDURE WELL.
--- NOTE | 2019-08-03 17:00 | NUR ---
PATIENT'S HAS BEEN EDUCATED ON HOW TO EMPTY THE SKYE DRAIN AND SHE WAS OBSERVED PERFORMING THE TASK. SHE EXPRESSED CONFIDENCE IN DOING IT.
--- NOTE | 2019-08-03 18:38 | NUR ---
DISCHARGE INSTRUCTIONS WAS PROVIDED TO THE PATIENT AND HIS WITH DAUGHTER AT THE BEDSIDE. FOLLOW-UP APPOINTMENT WAS MADE WITH SURGEON FOR HIM, AND THE PRESCRIPTIONS WERE GIVEN TO HIM AND HE AND HIS VERBALIZED UNDERSTANDING. INSTRUCTED TO CALL FOR SIGNS OF COMPLICATIONS. IV ACCESS WAS REMOVED EARLIER BY CHARGE NURSE WITHOUT COMPLICATION. PATIENT LEFT THE UNIT VIA WHEELCHAIR IN STABLE CONDITION IN CARE OF HIS FAMILY.
== END 2019-08-03 18:35 | disposition home or self-care (01) | DRG 351 ==
LOC: EDH 15:43 → OBSVTOIN 19:10 → EDHIP 19:10 → 3DH 19:44
PROVIDERS: ADMIT Internal Medicine Pulmonary Disease; ATTEND Internal Medicine Pulmonary Disease
PROC: 0D9670Z Drainage of Stomach with Drainage Device, Via Natural or Artificial Opening (ICD-10-PCS; 2019-07-29)
PROC: 0YUA0JZ Supplement Bilateral Inguinal Region with Synthetic Substitute, Open Approach (ICD-10-PCS; principal; 2019-07-29 10:40)
PROC: 3E0T3BZ Introduction of Anesthetic Agent into Peripheral Nerves and Plexi, Percutaneous Approach (ICD-10-PCS; 2019-07-29 10:40)
DX: K40.00 Bilateral inguinal hernia, with obstruction, without gangrene, not specified as recurrent (principal); N17.9 Acute kidney failure, unspecified; N49.2 Inflammatory disorders of scrotum; I10 Essential (primary) hypertension; D72.829 Elevated white blood cell count, unspecified; R33.9 Retention of urine, unspecified; J44.9 Chronic obstructive pulmonary disease, unspecified; N32.0 Bladder-neck obstruction; N39.3 Stress incontinence (female) (male); Z79.899 Other long term (current) drug therapy; Z85.46 Personal history of malignant neoplasm of prostate; Z87.891 Personal history of nicotine dependence; Z90.79 Acquired absence of other genital organ(s)
CPT/HCPCS: 36415; 71045; 74018; 76870; 80048; 80053; 80202; 81001; 82948; 83605; 83735; 85025; 85027; 85610; 85730; 87040; 88302; 88304; 94640; 94664; 96365; 96366; 96375; 97039; A5061; C1781; G0378; J0360; J0692; J1100; J1644; J1815; J1885; J2250; J2270; J2405; J2543; J2704; J2710; J2795; J3010; J3370; J3475; J3490; J7030; J7120

== ENCOUNTER 2019-11-25 09:35 | Day surgery (SDC) | payer OTHER ==
[2019-11-09 17:52] LABS: BASOPHILS % (AUTO) 0.4 % (0.0-5.0); EOSINOPHILS % (AUTO) 1.1 % (0.0-8.0); HEMATOCRIT 36.1 % (42-54); LYMPHOCYTES % (AUTO) 17.8 % (21.0-51.0); MEAN CORPUSCULAR HEMOGLOBIN 29.8 pg (27.0-33.0); MEAN CORPUSCULAR HGB CONC 33.8 g/dL (32.0-36.0); MEAN CORPUSCULAR VOLUME 88.3 fL (79-99); MONOCYTES % (AUTO) 7.2 % (3.0-13.0); NEUTROPHILS % (AUTO) 73.1 % (40.0-77.0); PLATELET COUNT (AUTO) 375 K/uL (130-400); RED BLOOD CELL COUNT(AUTO) 4.09 MIL/uL (4.50-6.20); RED CELL DISTRIBUTION WIDTH 12.7 % (11.0-15.5)
[2019-11-09 18:05] VITALS: BP 151/57
[2019-11-09 18:12] LABS: CREATININE 1.1 mg/dL (0.5-1.5); POTASSIUM 4.5 mmol/L (3.5-5.1)
--- NOTE | 2019-11-10 12:00 | NUR ---
ABNORMAL LAB: FAXED ABNORMAL CBC RESULTS TO DR. BWOEN. SPOKE TO ELADIO BAIRD AT DR. BOWEN'S OFFICE AND WILL SHOW RESULTS TO DOCTOR. WILL RETURN CALL IF ANY ORDERS GIVEN.
--- NOTE | 2019-11-10 12:50 | NUR ---
CONSULT: DR. ARACELIS BOWEN RETURNED CALL REGARDING ABNORMAL LABS CBC, ORDERS GIVEN. PT TO BE SEEN BY PCP REGARDING ABNORMAL WBC ELEVATED, RECENT COLD AND COPD. PATIENT TO BE RESCHEDULED FOR 11/25/19
--- NOTE | 2019-11-10 12:50 | NUR ---
KNOWLEDGE DEFICIT REGARDING SURGERY: SPOKE TO PATIENTS REGARDING SURGERY CANCELLED FOR 11/11/19 AND RESCHEDULED FOR 11/25/19. INFORMED THAT PATIENT NEEDS TO BE FOLLOWED UP BY DR. SOLIS PCP REGARDING ELEVATED WBC AND RECENT COLD BEFORE SCHEDULED DATE. VERBALIZED GOOD UNDERSTANDING. INFORMED TO NOTIFY DR. BOWEN WHEN CLEARED BY PCP., VERBALIZED GOOD UNDERSTANDING.
[2019-11-25] VITALS (12 sets, daily range): BP systolic 144–170; BP diastolic 62–97
[~2019-11-25] VITALS: Ht 175.3 cm; Wt 76.8 kg
[~2019-11-25 09:35] MED LIST changes: -ALBUTEROL SULFATE IH; +ATOR10 PO; +CALC500T7 PO; +CEFTRIAXONE SODIUM 1 GM IVP SCH; +DOCU-116 PO; +FOLI0.8T22 PO; -SOLUMEDROL PO
[2019-11-25] MEDS ORDERED: LACTATED RINGERS 1000ML 1,000 ML IV ONE (09:53)
[2019-11-25] MEDS: CEFTRIAXONE SODIUM 1 GM ONE ×2 (10:07→13:00)
[2019-11-25] MEDS ORDERED: LISI40TA4 PO (10:13)
[2019-11-25] MEDS ORDERED: ATOR10TA69 PO (10:14)
[2019-11-25] MEDS ORDERED: ROCURONIUM 10MG/1ML SYR 10 MG/ML ML ONE (13:02)
[2019-11-25] MEDS ORDERED: PROPOFOL 10 MG/ML 20ML VIAL IV ONE (13:02)
[2019-11-25] MEDS ORDERED: FENTANYL CITRATE PF 50 MCG/1 ML 2ML VIAL ONE ×2 (13:02→14:25)
[2019-11-25] MEDS ORDERED: MIDAZOLAM HCL 1 MG/ML 2ML VIAL ONE (13:02)
[2019-11-25] MEDS ORDERED: DEXAMETHASONE SOD PHOSPHATE 10MG/ML 1ML VIAL ONE (13:14)
[2019-11-25] MEDS ORDERED: ONDANSETRON HCL 4 MG/2 ML VIAL ONE (13:15)
[2019-11-25] MEDS ORDERED: GLYCOPYRROLATE 1 MG/5 ML SYRINGE ONE (13:15)
[2019-11-25] MEDS ORDERED: NEOSTIGMINE 5MG/5ML SYR IV ONE (13:15)
[2019-11-25] MEDS ORDERED: PHENYLEPHRINE HCL 10 MG/ML 1ML VIAL IV ONE (13:49)
[2019-11-25] MEDS ORDERED: NEOMY SULF/BACITRAC ZN/POLY OINT 30GM TUBE TP ONE (14:42)
[2019-11-25] MEDS ORDERED: PHENAZOPYRIDINE HCL 200 MG TABLET ONE (15:56)
--- NOTE | 2019-11-25 16:15 | NUR ---
HEAD OF PENIS DRESSING, BLOODY. NEW DRESSING APPLIED. Addendum: 11/25/19 at 1633 by FELI MEHTA RN RN Amended: Links added.
--- NOTE | 2019-11-25 16:53 | NUR ---
DRSG DRSG TO HEAD OF PENIS BLOODY. REDRESSED. INSTRUCTED PT ON IMPORTANCE OF MONITORING DRSG FOR EXCESSIVE BLEEDING. PT VERBALIZED UNDERSTANDING. INFORMED LEYDI DR. ADAMSON ASST OF BLEEDING. SHE WILL INFORM DR. BOWEN.
== END 2019-11-25 17:03 | disposition home or self-care (01) ==
LOC: DAH 09:35
PROVIDERS: ATTEND Urology
DX: N32.0 Bladder-neck obstruction (principal); N47.1 Phimosis; I10 Essential (primary) hypertension; J44.9 Chronic obstructive pulmonary disease, unspecified; F17.210 Nicotine dependence, cigarettes, uncomplicated; Z79.899 Other long term (current) drug therapy; Z85.46 Personal history of malignant neoplasm of prostate; Z86.010 Personal history of colon polyps; Z82.5 Family history of asthma and other chronic lower respiratory diseases
CPT/HCPCS: 36415; 52276; 54450; 80048; 85025; 93005; A4215; A4221; A4222; A4223; A4315; A4340; A4344; A4510; A4600; A4663; A4930; A5113; A6260; C1758 ×2; C1769; J0696; J1100; J2250; J2370; J2405; J2704; J2710; J3010 ×2; J3490; J7120 ×2

== ENCOUNTER 2020-04-13 00:53 | Observation (INO) | payer OTHER ==
[~2020-04-13] VITALS: Ht 177.8 cm; Wt 79.4 kg
[~2020-04-13 00:53] MED LIST changes: -ATOR10 PO; +ATOR10TA69 PO; -CEFTRIAXONE SODIUM 1 GM IVP SCH; -LISI-613 PO; +LISI40TA4 PO
[2020-04-13 01:25] LABS: BASOPHILS % (AUTO) 0.5 % (0.0-5.0); EOSINOPHILS % (AUTO) 2.9 % (0.0-8.0); HEMATOCRIT 38.9 % (42-54); LYMPHOCYTES % (AUTO) 25.5 % (21.0-51.0); MEAN CORPUSCULAR HEMOGLOBIN 29.5 pg (27.0-33.0); MEAN CORPUSCULAR HGB CONC 33.9 g/dL (32.0-36.0); NEUTROPHILS % (AUTO) 64.5 % (40.0-77.0); PLATELET COUNT (AUTO) 336 K/uL (130-400); RED BLOOD CELL COUNT(AUTO) 4.47 MIL/uL (4.50-6.20); RED CELL DISTRIBUTION WIDTH 12.6 % (11.0-15.5); WHITE BLOOD COUNT (AUTO) 16.1 K/uL (4.8-10.8)
[2020-04-13 01:37] LABS: CREATININE 1.4 mg/dL (0.5-1.5); POTASSIUM 3.9 mmol/L (3.5-5.1)
[2020-04-13 01:42] LABS: BILIRUBIN,TOTAL 0.3 mg/dL (0.2-1.0); TOTAL PROTEIN, SERUM 7.1 g/dL (6.0-8.3)
[2020-04-13] MEDS ORDERED: LIDOCAINE HCL 2% JELLY 5 ML ONE (01:50)
[2020-04-13] MEDS ORDERED: ONDANSETRON HCL 4 MG/2 ML VIAL ONE (02:02)
[2020-04-13] MEDS ORDERED: MORPHINE SULFATE 4 MG/1ML SYG ONE ×2 (02:02→03:41)
[2020-04-13 02:41] LABS: APPEARANCE,URINE Clear (CLEAR); BILIRUBIN,URINE Negative (NEGATIVE); COLOR,URINE Yellow (YELLOW); GLUCOSE, URINE (UA) Negative (NEGATIVE); KETONES,URINE Negative (NEGATIVE); LEUKOCYTE ESTERASE ,URINE Trace (NEGATIVE); NITRATE,URINE Negative (NEGATIVE); OCCULT BLOOD,URINE Large (NEGATIVE); PROTEIN,URINE POS 2+ mg/dL (NEGATIVE); UROBILINOGEN,URINE 0.2 mg/dL (0.2-1.0)
[2020-04-13 02:52] LABS: BACTERIA,URINE None Seen /HPF (None Seen); MUCUS,URINE Few LPF (None Seen); SQUAMOUS EPITHELIAL CELL,UR Few /HPF (0-2); WBC,URINE 0-1 /HPF (0-1)
[2020-04-13] MEDS ORDERED: HYDRALAZINE HCL 20 MG/ML VIAL ONE (03:38)
[2020-04-13] MEDS ORDERED: TAMSULOSIN HCL 0.4 MG CAP.ER.24H ONE (04:21)
[2020-04-13] MEDS ORDERED: CEFTRIAXONE SODIUM 1 GM IVP SCH (06:00)
[2020-04-13] MEDS ORDERED: CEFTRIAXONE SODIUM 1 GM ONE (06:47)
== END 2020-04-13 13:56 | disposition home or self-care (01) ==
LOC: EDH 00:53 → EDHIP 04:35
PROVIDERS: ADMIT Internal Medicine; ATTEND Internal Medicine
DX: R33.8 Other retention of urine (principal); N13.9 Obstructive and reflux uropathy, unspecified; R32 Unspecified urinary incontinence; J44.9 Chronic obstructive pulmonary disease, unspecified; E78.5 Hyperlipidemia, unspecified; I10 Essential (primary) hypertension
CPT/HCPCS: 36415; 80053; 81001; 82550; 84484; 85025; 93005; 99284; G0378 ×9; J0360; J0696; J2270 ×2; J2405

== ENCOUNTER → 2023-03-19 | Outpatient (CLI) | payer OTHER ==
[~2023-03-19] MED LIST changes: -CALC500T7 PO; +LIDOCAINE HCL 4% LTA SOL 4 ML VIAL TP ONE; -LISI40TA4 PO; +LISI40TA9 PO
== END | disposition home or self-care (01) ==
LOC: WHH 10:30
PROVIDERS: ATTEND Family Medicine
DX: I87.313 Chronic venous hypertension (idiopathic) with ulcer of bilateral lower extremity (principal); E11.621 Type 2 diabetes mellitus with foot ulcer; I70.245 Atherosclerosis of native arteries of left leg with ulceration of other part of foot; L97.522 Non-pressure chronic ulcer of other part of left foot with fat layer exposed; E11.622 Type 2 diabetes mellitus with other skin ulcer; I70.248 Atherosclerosis of native arteries of left leg with ulceration of other part of lower leg; L97.812 Non-pressure chronic ulcer of other part of right lower leg with fat layer exposed; S81.801A Unspecified open wound, right lower leg, initial encounter; E11.22 Type 2 diabetes mellitus with diabetic chronic kidney disease; I12.9 Hypertensive chronic kidney disease with stage 1 through stage 4 chronic kidney disease, or unspecified chronic kidney disease; N18.2 Chronic kidney disease, stage 2 (mild); E11.40 Type 2 diabetes mellitus with diabetic neuropathy, unspecified; E11.51 Type 2 diabetes mellitus with diabetic peripheral angiopathy without gangrene; E78.00 Pure hypercholesterolemia, unspecified; J44.9 Chronic obstructive pulmonary disease, unspecified; Z85.46 Personal history of malignant neoplasm of prostate; Z87.891 Personal history of nicotine dependence; Z79.899 Other long term (current) drug therapy; X58.XXXA Exposure to other specified factors, initial encounter; Y93.89 Activity, other specified; Y92.89 Other specified places as the place of occurrence of the external cause; Y99.8 Other external cause status
CPT/HCPCS: 11042

== ENCOUNTER → 2023-03-26 | Outpatient (CLI) | payer OTHER | END | disposition home or self-care (01) | LOC: WHH 09:56 | PROVIDERS: ATTEND Nurse Practitioner Family | DX: I87.313 Chronic venous hypertension (idiopathic) with ulcer of bilateral lower extremity (principal); E11.621 Type 2 diabetes mellitus with foot ulcer; I70.245 Atherosclerosis of native arteries of left leg with ulceration of other part of foot; L97.522 Non-pressure chronic ulcer of other part of left foot with fat layer exposed; E11.622 Type 2 diabetes mellitus with other skin ulcer; I70.248 Atherosclerosis of native arteries of left leg with ulceration of other part of lower leg; L97.812 Non-pressure chronic ulcer of other part of right lower leg with fat layer exposed; S81.801D Unspecified open wound, right lower leg, subsequent encounter; E11.22 Type 2 diabetes mellitus with diabetic chronic kidney disease; I12.9 Hypertensive chronic kidney disease with stage 1 through stage 4 chronic kidney disease, or unspecified chronic kidney disease; N18.2 Chronic kidney disease, stage 2 (mild); E11.40 Type 2 diabetes mellitus with diabetic neuropathy, unspecified; E11.51 Type 2 diabetes mellitus with diabetic peripheral angiopathy without gangrene; E78.00 Pure hypercholesterolemia, unspecified; J44.9 Chronic obstructive pulmonary disease, unspecified; Z85.46 Personal history of malignant neoplasm of prostate; Z87.891 Personal history of nicotine dependence; Z79.899 Other long term (current) drug therapy; X58.XXXD Exposure to other specified factors, subsequent encounter | CPT/HCPCS: G0463 ==

== ENCOUNTER → 2023-04-02 | Outpatient (CLI) | payer OTHER ==
[~2023-04-02] MED LIST changes: -LIDOCAINE HCL 4% LTA SOL 4 ML VIAL TP ONE
== END | disposition home or self-care (01) ==
LOC: WHH 08:52
PROVIDERS: ATTEND Nurse Practitioner Family
DX: I87.313 Chronic venous hypertension (idiopathic) with ulcer of bilateral lower extremity (principal); E11.621 Type 2 diabetes mellitus with foot ulcer; I70.245 Atherosclerosis of native arteries of left leg with ulceration of other part of foot; L97.522 Non-pressure chronic ulcer of other part of left foot with fat layer exposed; E11.622 Type 2 diabetes mellitus with other skin ulcer; I70.248 Atherosclerosis of native arteries of left leg with ulceration of other part of lower leg; L97.812 Non-pressure chronic ulcer of other part of right lower leg with fat layer exposed; S81.801D Unspecified open wound, right lower leg, subsequent encounter; E11.22 Type 2 diabetes mellitus with diabetic chronic kidney disease; I12.9 Hypertensive chronic kidney disease with stage 1 through stage 4 chronic kidney disease, or unspecified chronic kidney disease; N18.2 Chronic kidney disease, stage 2 (mild); E11.40 Type 2 diabetes mellitus with diabetic neuropathy, unspecified; E11.51 Type 2 diabetes mellitus with diabetic peripheral angiopathy without gangrene; E78.00 Pure hypercholesterolemia, unspecified; J44.9 Chronic obstructive pulmonary disease, unspecified; Z85.46 Personal history of malignant neoplasm of prostate; Z87.891 Personal history of nicotine dependence; Z79.899 Other long term (current) drug therapy; X58.XXXD Exposure to other specified factors, subsequent encounter
CPT/HCPCS: G0463